=== PATIENT | male | born 1955 | race Caucasian/White ===

== ENCOUNTER 2024-06-23 06:59 | Outpatient (CLI) | payer OTHER | END 2024-06-23 07:20 | disposition home or self-care (01) | LOC: MRI 06:59 | DX: S46.011S Strain of muscle(s) and tendon(s) of the rotator cuff of right shoulder, sequela (principal); J44.9 Chronic obstructive pulmonary disease, unspecified; F17.201 Nicotine dependence, unspecified, in remission | CPT/HCPCS: 73221 ==